=== PATIENT | female | born 1980 | race African-American/Black ===

== ENCOUNTER 2016-09-08 08:38 | Emergency (ER) | payer MEDICAID ==
[~2016-09-08] VITALS: Ht 170.2 cm; Wt 58.0 kg
[2016-09-08] MEDS ORDERED: SODIUM CHLORIDE 0.9% 1,000 ML IV ONE (08:49)
[2016-09-08] MEDS ORDERED: ONDANSETRON HCL 4MG/2ML VIAL IV STA (08:49)
[2016-09-08] MEDS ORDERED: ACETAMINOPHEN 325MG TABLET PO ONE (09:00)
[2016-09-08] MEDS ORDERED: ONDANSETRON 4MG ODT PO ONE (09:15)
[2016-09-08 09:18] LABS: INR 1.1; PROTHROMBIN TIME 10.9 sec
[2016-09-08] MEDS ORDERED: ONDANSETRON 4MG ODT ONE (09:19)
[2016-09-08 09:24] LABS: CARBON DIOXIDE 24 mEq/L (21-32); CHLORIDE 106 mEq/L (98-107)
[2016-09-08 09:26] LABS: BASOPHILS % 0.8 % (0.0-2.0); EOSINOPHILS % 0.8 % (0.0-5.0); HEMATOCRIT. 38.1 % (36.0-48.0); HEMOGLOBIN. 12.4 g/dL (12.0-16.0); MEAN CORPUSCULAR HEMOGLOBIN 28.9 pg (28.0-32.0); MEAN CORPUSCULAR VOLUME 89.1 fL (81.0-99.0); MEAN PLATELET VOLUME 7.6 fl (7.4-10.4); MONOCYTES % 3.8 % (2.0-8.0); NEUTROPHILS % 79.6 % (40.0-76.0); PLATELET 243 x1000/uL (130-400); RED BLOOD CELL COUNT 4.28 mill/uL (4.2-5.4); RED CELL DISTRIBUTION WIDTH 14.3 % (11.6-14.6)
[2016-09-08 09:27] VITALS: BP 112/68
[2016-09-08 09:28] LABS: HCG SCREEN NEGATIVE
== END 2016-09-08 09:40 | disposition home or self-care (01) ==
LOC: ER 08:39
DX: R10.32 Left lower quadrant pain (principal); N83.209 Unspecified ovarian cyst, unspecified side; G43.909 Migraine, unspecified, not intractable, without status migrainosus; F17.200 Nicotine dependence, unspecified, uncomplicated; E05.90 Thyrotoxicosis, unspecified without thyrotoxic crisis or storm; Z88.5 Allergy status to narcotic agent
CPT/HCPCS: 36415; 80053; 83690; 84702; 84703; 85025; 85610; 99284; J7030; Q0162; Z7610; J2405

== ENCOUNTER 2016-10-07 10:18 | Emergency (ER) | payer MEDICAID, OTHER ==
[~2016-10-07] VITALS: Ht 165.1 cm; Wt 64.0 kg
[2016-10-07] MEDS ORDERED: LORAZEPAM 2MG/ML CPJ IM ONE (11:00)
[2016-10-07 12:42] VITALS: BP 113/66
== END 2016-10-07 12:44 | disposition home or self-care (01) ==
LOC: ER 10:54
DX: F41.0 Panic disorder [episodic paroxysmal anxiety] (principal); F17.200 Nicotine dependence, unspecified, uncomplicated; Z88.6 Allergy status to analgesic agent
CPT/HCPCS: 96372; 99283; J2060